=== PATIENT | female | born 1995 | race African-American/Black ===

== ENCOUNTER 2017-02-28 07:27 | Emergency (ER) | payer SELFPAY ==
[2017-02-28] MEDS ORDERED: Acetaminophen 500 MG TAB ONE (08:15)
[2017-02-28] MEDS ORDERED: Ondansetron HCl/PF 4 MG/2 ML Vial ONE (08:15)
--- NOTE | 2017-02-28 08:31 | RAD ---
CHEST 1 VIEW: HISTORY: Cough and shortness of breath. COMPARISON: Chest 1 view 05/28/16. FINDINGS: The lungs are clear. No pneumothorax or effusion. Cardiac silhouette and mediastinal contours are w ithin normal limits. IMPRESSION: No acute intrathoracic abnormality. POS: [facility]
[2017-02-28] MEDS ORDERED: Water For Inject, Bacteriostat 30 ML ONE (08:32)
[2017-02-28] MEDS ORDERED: methylPREDNISolone Sod Succ/PF 125 MG/2 ML VIAL ONE (08:32)
[2017-02-28] MEDS ORDERED: Benzonatate 100 MG CAP ONE (08:34)
[2017-02-28 08:37] LABS: ALT (SGPT) 35 U/L (8-55); AST (SGOT) 42 U/L (5-34); Alkaline Phosphatase 64 U/L (40-150); Anion Gap 17 mmol/L (10-20); BUN (Urea Nitrogen) 6 mg/dL (7.0-18.7); Bilirubin, Total 0.5 mg/dL (0.2-1.2); Calc. Creatinine Clearance 0 mL/min (70-130); Calcium 10.2 mg/dL (7.8-10.44); Carbon Dioxide 19 mmol/L (22-29); Chloride 104 mmol/L (98-107); Estimated GFR-MDRD Greater than 90; Globulin 4.8 g/dL (2.4-3.5); Protein, Total 9.3 g/dL (6.0-8.3)
[2017-02-28] MEDS ORDERED: Albuterol Sulfate 2.5 mg/3 ml Neb ONE (08:40)
[2017-02-28] MEDS ORDERED: Albuterol Sulfate 2.5 mg/0.5 ml Neb ONE ×3 (08:40)
[2017-02-28 08:52] LABS: Band 2 % (5-11); Hematocrit 45.6 % (36.0-47.0); Mean Platelet Volume 8.1 fL (7.4-10.4); Neutrophil 39 % (42-75); Red Blood Cell (RBC) Count 5.46 mill/uL (4.20-5.40); White Blood Cell (WBC) Count 6.9 thou/uL (4.8-10.8)
== END 2017-02-28 11:27 | disposition home or self-care (01) ==
LOC: ERS 07:27
DX: J45.909 Unspecified asthma, uncomplicated (principal); E11.9 Type 2 diabetes mellitus without complications; I10 Essential (primary) hypertension; Z79.84 Long term (current) use of oral hypoglycemic drugs; Z79.899 Other long term (current) drug therapy
CPT/HCPCS: 36416; 71010; 80053; 82010; 85025; 93005; 94640; 94644; 96361; 96374; 96375; J2405; J2930; J7611; J7620

== ENCOUNTER 2017-10-10 14:18 | Emergency (ER) | payer BC | END 2017-10-10 15:36 | disposition left against medical advice (07) | LOC: ERS 14:18 | DX: Z53.21 Procedure and treatment not carried out due to patient leaving prior to being seen by health care provider (principal) ==

== ENCOUNTER 2017-11-07 11:50 | Emergency (ER) | payer BC ==
[2017-11-07] MEDS ORDERED: Ketorolac Tromethamine 30 MG/ML VIAL ONE (13:17)
== END 2017-11-07 13:42 | disposition home or self-care (01) ==
LOC: ERS 11:50
DX: S29.012A Strain of muscle and tendon of back wall of thorax, initial encounter (principal); E11.9 Type 2 diabetes mellitus without complications; I10 Essential (primary) hypertension; G43.909 Migraine, unspecified, not intractable, without status migrainosus; Z79.84 Long term (current) use of oral hypoglycemic drugs; Z79.899 Other long term (current) drug therapy; X58.XXXA Exposure to other specified factors, initial encounter
CPT/HCPCS: 96372; J1885

== ENCOUNTER 2018-05-31 05:15 | Emergency (ER) | payer SELFPAY ==
[2018-05-31 06:19] LABS: Hemoglobin 12.8 g/dL (12.0-16.0); Mean Corpuscular HGB CONC 32.8 g/dL (32.0-36.0); Mean Corpuscular Hemoglobin 26.2 pg (27.0-31.0); Mean Corpuscular Volume 79.9 fL (78.0-98.0); Mean Platelet Volume 8.7 fL (7.4-10.4); Platelet Count 219 thou/uL (130-400); RBC Distribution Width 14.5 % (11.5-14.5); Red Blood Cell (RBC) Count 4.91 mill/uL (4.20-5.40); White Blood Cell (WBC) Count 7.7 thou/uL (4.8-10.8)
[2018-05-31 06:25] LABS: ALT (SGPT) 18 U/L (8-55); AST (SGOT) 20 U/L (5-34); Albumin 4.1 g/dL (3.5-5.0); Alkaline Phosphatase 55 U/L (40-150); Anion Gap 15 mmol/L (10-20); BUN (Urea Nitrogen) 9 mg/dL (7.0-18.7); Bilirubin, Total 0.5 mg/dL (0.2-1.2); Calc. Creatinine Clearance 0 mL/min (70-130); Calcium 9.4 mg/dL (7.8-10.44); Carbon Dioxide 22 mmol/L (22-29); Chloride 103 mmol/L (98-107); Estimated GFR-MDRD Greater than 90; Globulin 4.1 g/dL (2.4-3.5); Glucose 108 mg/dL (70-105); Potassium 3.5 mmol/L (3.5-5.1); Protein, Total 8.2 g/dL (6.0-8.3); Sodium 136 mmol/L (136-145)
[2018-05-31] MEDS ORDERED: Acetaminophen 500 MG TAB ONE (06:25)
[2018-05-31 06:34] LABS: Band 3 % (5-11); Lymphocytes 18 % (21-51); MDiff Complete? YES; Monocytes 14 % (0-10); Neutrophil 65 % (42-75); Platelet Morphology Comment Appears Adequate
--- NOTE | 2018-05-31 08:28 | RAD ---
PORTABLE CHEST: DATE: 05/31/2018. PROVIDED CLINICAL HISTORY: Chest pain. FINDINGS: Comparison 04/26/2018. Cardiac and mediastinal silhouette is within normal limits for portable techni que. No focal consolidation, pleural fluid, or pneumothorax apparent. IMPRESSION: No evidence for an acute cardiopulmonary process. POS: DORETHA
== END 2018-05-31 07:05 | disposition home or self-care (01) ==
LOC: ERS 05:15
DX: I10 Essential (primary) hypertension (principal); J11.1 Influenza due to unidentified influenza virus with other respiratory manifestations; K08.89 Other specified disorders of teeth and supporting structures; G43.909 Migraine, unspecified, not intractable, without status migrainosus; E11.9 Type 2 diabetes mellitus without complications; F41.9 Anxiety disorder, unspecified; F17.200 Nicotine dependence, unspecified, uncomplicated; Z79.899 Other long term (current) drug therapy; Z79.84 Long term (current) use of oral hypoglycemic drugs
CPT/HCPCS: 36415; 71045; 80053; 84484; 85025; 87804; 93005

== ENCOUNTER 2019-03-30 16:22 | Emergency (ER) | payer OTHER, SELFPAY ==
[2019-03-30] MEDS ORDERED: Diazepam 10 MG/2 ML SYRINGE ONE (16:54)
[2019-03-30 17:22] LABS: Hemoglobin 11.2 g/dL (12.0-16.0); Mean Corpuscular HGB CONC 32.2 g/dL (32.0-36.0); Mean Corpuscular Hemoglobin 27.1 pg (27.0-31.0); Mean Corpuscular Volume 83.9 fL (78.0-98.0); Mean Platelet Volume 8.5 fL (7.4-10.4); Platelet Count 326 thou/uL (130-400); RBC Distribution Width 13.2 % (11.5-14.5); Red Blood Cell (RBC) Count 4.14 mill/uL (4.20-5.40)
[2019-03-30 17:39] LABS: ALT (SGPT) 17 U/L (8-55); AST (SGOT) 15 U/L (5-34); Alkaline Phosphatase 53 U/L (40-110); Anion Gap 14 mmol/L (10-20); BUN (Urea Nitrogen) 4 mg/dL (7.0-18.7); Bilirubin, Total 0.4 mg/dL (0.2-1.2); Calc. Creatinine Clearance 0 mL/min (70-130); Calcium 9.1 mg/dL (7.8-10.44); Carbon Dioxide 20 mmol/L (22-29); Chloride 106 mmol/L (98-107); Estimated GFR-MDRD Greater than 90; Globulin 3.5 g/dL (2.4-3.5); Glucose 130 mg/dL (70-105); Potassium 3.6 mmol/L (3.5-5.1); Protein, Total 7.5 g/dL (6.0-8.3); Sodium 136 mmol/L (136-145)
[2019-03-30 17:47] LABS: Band 5 % (5-11); Lymphocytes 10 % (21-51); MDiff Complete? YES; Monocytes 7 % (0-10); Neutrophil 78 % (42-75); Platelet Morphology Comment Appears Adequate; RBC Morphology Normal
--- NOTE | 2019-03-30 18:44 | ULT ---
Exam: Transabdominal and endovaginal pelvic ultrasound HISTORY:Severe pelvic pain. Recent miscarriage COMPARISON: None TECHNIQUE: Transabdominal and endovaginal imaging of the pelvis is performed. FINDINGS: Uterus: Heterogeneity in the myometrium. Uterus measurin.0 x 4.5 x 5.6 cm. Endometrium: Ill-defined. Heterogeneous echotexture. Endometrium diameter: Cannot be assessed due to ill-defined endometrium cm. In the lower uterine segment, there is an anechoic focus compatible with a gestational sac. Mean sac diameter is 5.26 cm corresponding to a gestational age of 8 weeks 4 days. Within the gestational sac is a pole, with a crown-rump length of 0.87 cm corresponding to a gestational age of 6 week s 6 days. Absent heart tones. Free fluid: None Right ovary: Not appreciated Left ovary: Not appreciated IMPRESSION: 1. Anechoic focus in the lower uterine segment with a pole. Gestational age by crown-rump lengt h is 6 weeks 6 days. Absent heart tones. 2. Sonographic evidence of active spontaneous . Transcribed Date/Time: 03/30/2019 7:18 PM
[2019-03-30] MEDS ORDERED: Ketorolac Tromethamine 30 MG/ML VIAL ONE (20:53)
--- NOTE | 2019-03-31 06:56 | CON ---
DATE OF CONSULTATION: 03/30/2019 TIME OF CONSULTATION: 2000 hours. HISTORY OF PRESENT ILLNESS: Ms. Rosario is a 23-year-old, 1, para 0, who presented to the emergency room from [facility], complaining of vaginal bleeding. She was noted to have a beta HCG of 600, and ultrasound exam consistent with an incomplete AB at approximately 8 to 10 weeks' gestation. LMFT HISTORY: Primigravida. No history of STDs. The patient has had a history of a vulvar abscess with a new diagnosis of uncontrolled diabetes back in 2017 that required I and D by myself and [facility]. PAST MEDICAL HISTORY: Insulin-dependent diabetes, no control, no current treatment. The patient has not seen a doctor in several months. PAST SURGICAL HISTORY: I and D of abscess. ALLERGIES: DENIES. MEDICATIONS: None. SOCIAL HISTORY: The patient has complex socioeconomic situation. PHYSICAL EXAMINATION: GENERAL: Black female, crying. VITAL SIGNS: Temperature 99.1, pulse 98, respirations 18, and blood pressure 142/86. HEENT: Within normal limits. LUNGS: Clear to auscultation bilaterally. HEART: Regular rate and rhythm. ABDOMEN: Soft, nontender. VAGINAL EXAM: By a physician in the ED, revealed an os that was slightly open. No active bleeding. No tissue noted in the os. EXTREMITIES: No clubbing, cyanosis, or edema. LABORATORY: Revealed a beta HCG of 630. Ultrasound revealed a gestational sac measuring approximately 4 cm in the lower uterine segment. IMPRESSION: Missed to incomplete at 8 weeks' gestation. PLAN: The patient could have been admitted for D and C versus Cytotec; however, the patient had [facility] Medicaid and because of out of network status for [facility], transfer was initiated by the ED to [facility]. Job ID: [id number]
== END 2019-03-30 20:08 | disposition home or self-care (01) ==
LOC: ERS 16:22
DX: O03.4 Incomplete spontaneous abortion without complication (principal); I10 Essential (primary) hypertension; E11.9 Type 2 diabetes mellitus without complications; G43.909 Migraine, unspecified, not intractable, without status migrainosus; F41.9 Anxiety disorder, unspecified; F17.200 Nicotine dependence, unspecified, uncomplicated; Z79.84 Long term (current) use of oral hypoglycemic drugs; Z79.899 Other long term (current) drug therapy
CPT/HCPCS: 36415; 76856; 80053; 84702; 85025; 96374; 96375; J1885; J3360

== ENCOUNTER 2019-05-22 22:05 | Emergency (ER) | payer OTHER | END 2019-05-22 23:24 | disposition home or self-care (01) | LOC: ERS 22:05 | DX: B34.9 Viral infection, unspecified (principal); I10 Essential (primary) hypertension; E11.9 Type 2 diabetes mellitus without complications; G43.909 Migraine, unspecified, not intractable, without status migrainosus; F41.9 Anxiety disorder, unspecified; F17.210 Nicotine dependence, cigarettes, uncomplicated | CPT/HCPCS: 87081; 87430; 99281 ==

== ENCOUNTER 2019-05-31 17:01 | Emergency (ER) | payer OTHER | END 2019-05-31 17:47 | disposition home or self-care (01) | LOC: ERS 17:01 | DX: K08.89 Other specified disorders of teeth and supporting structures (principal); R11.0 Nausea; E11.9 Type 2 diabetes mellitus without complications; I10 Essential (primary) hypertension; F41.9 Anxiety disorder, unspecified; Z79.84 Long term (current) use of oral hypoglycemic drugs | CPT/HCPCS: 99282 ==

== ENCOUNTER 2020-03-31 21:17 | Emergency (ER) | payer OTHER | END 2020-03-31 21:58 | disposition home or self-care (01) | LOC: ERS 21:17 | DX: L72.3 Sebaceous cyst (principal); L73.1 Pseudofolliculitis barbae; E11.9 Type 2 diabetes mellitus without complications; I10 Essential (primary) hypertension; F17.210 Nicotine dependence, cigarettes, uncomplicated | CPT/HCPCS: 99282 ==

== ENCOUNTER 2020-09-02 05:51 | Emergency (ER) | payer OTHER ==
[2020-09-02 06:23] LABS: #Lymphocytes 0.9 thou/uL (1.20-3.40); #Monocytes 0.6 thou/uL (0.11-0.59); #Neutrophils 6.8 thou/uL (1.40-6.50); %Basophils 0.2 % (0.0-1.0); %Lymphocytes 10.2 % (21.0-51.0); %Monocytes 7.4 % (0.0-10.0); %Neutrophils 82.1 % (42.0-75.0); Hemoglobin 13.6 g/dL (12.0-16.0); Mean Corpuscular HGB CONC 32.6 g/dL (32.0-36.0); Mean Corpuscular Hemoglobin 27.5 pg (27.0-31.0); Mean Corpuscular Volume 84.5 fL (78.0-98.0); Mean Platelet Volume 8.3 fL (7.4-10.4); Platelet Count 325 thou/uL (130-400); Red Blood Cell (RBC) Count 4.94 mill/uL (4.20-5.40); White Blood Cell (WBC) Count 8.3 thou/uL (4.8-10.8)
[2020-09-02] MEDS ORDERED: Ondansetron PF 4 MG/2 ML Vial ONE (06:31)
[2020-09-02] MEDS ORDERED: Ketorolac Tromethamine 30 MG/ML VIAL ONE (06:31)
[2020-09-02 06:45] LABS: ALT (SGPT) 26 U/L (8-55); AST (SGOT) 21 U/L (5-34); Albumin 4.1 g/dL (3.5-5.0); Alkaline Phosphatase 62 U/L (40-110); Anion Gap 16 mmol/L (10-20); BUN (Urea Nitrogen) 7 mg/dL (7.0-18.7); Bilirubin, Total 0.3 mg/dL (0.2-1.2); Calc. Creatinine Clearance 0 mL/min (70-130); Calcium 9.3 mg/dL (7.8-10.44); Carbon Dioxide 19 mmol/L (22-29); Chloride 105 mmol/L (98-107); Globulin 4.2 g/dL (2.4-3.5); Glucose 176 mg/dL (70-105); Potassium 3.6 mmol/L (3.5-5.1); Protein, Total 8.3 g/dL (6.0-8.3); Sodium 136 mmol/L (136-145)
== END 2020-09-02 08:06 | disposition home or self-care (01) ==
LOC: ERS 05:51
DX: R05 Cough (principal); R11.2 Nausea with vomiting, unspecified; R06.2 Wheezing; R07.81 Pleurodynia; R50.9 Fever, unspecified; E11.9 Type 2 diabetes mellitus without complications; I10 Essential (primary) hypertension; G43.909 Migraine, unspecified, not intractable, without status migrainosus; F17.210 Nicotine dependence, cigarettes, uncomplicated; Z79.84 Long term (current) use of oral hypoglycemic drugs; Z79.899 Other long term (current) drug therapy
CPT/HCPCS: 36415; 71045; 80053; 84484; 85025; 93005; 94640; 96374; 96375; J1885; J2405; J7620

== ENCOUNTER 2022-06-15 21:31 | Emergency (ER) | payer MEDICAID, OTHER ==
[2022-06-15] MEDS ORDERED: Ondansetron ODT 4 MG TAB ONE (21:55)
[2022-06-15 23:42] LABS: #Lymphocytes 3.6 thou/uL (1.20-3.40); #Monocytes 0.9 thou/uL (0.11-0.59); #Neutrophils 3.6 thou/uL (1.40-6.50); %Basophils 0.3 % (0.0-1.0); %Eosinophils 0.2 % (0.0-10.0); %Lymphocytes 43.9 % (21.0-51.0); %Monocytes 10.7 % (0.0-10.0); %Neutrophils 44.9 % (42.0-75.0); Hemoglobin 15.3 g/dL (12.0-16.0); Mean Corpuscular HGB CONC 34.7 g/dL (32.0-36.0); Mean Corpuscular Hemoglobin 30.7 pg (27.0-31.0); Mean Corpuscular Volume 88.4 fl (78.0-98.0); Mean Platelet Volume 8.9 fL (7.4-10.4); Platelet Count 198 10x3/uL (130-400); RBC Distribution Width 12.3 % (11.5-14.5); Red Blood Cell (RBC) Count 4.99 mill/uL (4.20-5.40); White Blood Cell (WBC) Count 8.1 10x3/uL (4.8-10.8)
[2022-06-16 00:01] LABS: ALT (SGPT) 38 U/L (8-55); AST (SGOT) 38 U/L (5-34); Albumin 4.3 g/dL (3.5-5.0); Alkaline Phosphatase 60 U/L (40-110); Anion Gap 14 mmol/L (10-20); BUN (Urea Nitrogen) 6 mg/dL (7.0-18.7); Bilirubin, Total 0.5 mg/dL (0.2-1.2); Calc. Creatinine Clearance 0 mL/min (70-130); Calcium 9.3 mg/dL (7.8-10.44); Carbon Dioxide 24 mmol/L (22-29); Chloride 102 mmol/L (98-107); Estimated GFR 94; Globulin 4.1 g/dL (2.4-3.5); Glucose 143 mg/dL (70-105); Potassium 3.8 mmol/L (3.5-5.1); Protein, Total 8.4 g/dL (6.0-8.3); Sodium 136 mmol/L (136-145)
[2022-06-16 00:19] LABS: SARS-CoV-2 NAA Rapid Test Not Detected (NotDetected)
== END 2022-06-16 00:55 | disposition home or self-care (01) ==
LOC: ERS 21:31
DX: B34.9 Viral infection, unspecified (principal); I10 Essential (primary) hypertension; F17.210 Nicotine dependence, cigarettes, uncomplicated; Z20.822 Contact with and (suspected) exposure to COVID-19
CPT/HCPCS: 36415; 71045; 80053; 85025; 93005; 96360; Q0162